=== PATIENT | male | born 1970 | race Caucasian/White ===

== ENCOUNTER 2017-12-13 08:12 | Outpatient (CLI) | payer MEDICAID ==
[2017-12-13 12:25] LABS: BASOPHILS # (AUTO) 0.1 10^3/uL (0.0-0.1); BASOPHILS % (AUTO) 0.8 %; EOSINOPHILS # (AUTO) 0.1 10^3/uL (0.0-0.7); EOSINOPHILS % (AUTO) 1.7 %; HGB - HEMOGLOBIN 15.9 g/dL (14.0-18.0); LYMPHOCYTES # (AUTO) 2.8 10^3/uL (1.5-3.5); LYMPHOCYTES % (AUTO) 31.7 %; MEAN CORPUSCULAR HEMOGLOBIN 30.5 pg (27.0-31.0); MEAN CORPUSCULAR HGB CONC 34.9 g/dL (32.0-36.0); MEAN CORPUSCULAR VOLUME 87.5 fL (80.0-94.0); MEAN PLATELET VOLUME 10.2 fL (7.4-11.4); MONOCYTES # (AUTO) 0.8 10^3/uL (0.0-1.0); MONOCYTES % (AUTO) 8.7 %; NEUTROPHILS % (AUTO) 57.1 %; PLT - PLATELET COUNT 164 10^3/uL (130-450); RED BLOOD COUNT 5.21 10^6/uL (4.70-6.10); RED CELL DISTRIBUTION WIDTH 13.9 % (12.0-15.0); WHITE BLOOD COUNT 8.7 x10^3/uL (4.8-10.8)
[2017-12-13 12:39] LABS: ALBUMIN 4.2 g/dL (3.2-5.5); ALBUMIN/GLOBULIN RATIO 1.6 (1.0-2.2); BILIRUBIN,TOTAL 0.4 mg/dL (0.2-1.0); CALCIUM 9.2 mg/dL (8.5-10.3); CREATININE 1.4 mg/dL (0.6-1.2); TOTAL PROTEIN 6.9 g/dL (6.7-8.2)
[2017-12-13 12:45] LABS: PSA FREE 0.151 ng/mL (0.16-2.81)
[2017-12-13 12:46] LABS: PSA TOTAL 0.826 ng/mL (0.000-2.000)
== END 2017-12-13 08:13 | disposition home or self-care (01) ==
LOC: LAB.N 08:12
PROVIDERS: ATTEND Family Medicine
DX: R35.8 Other polyuria (principal); R35.1 Nocturia
CPT/HCPCS: 36415; 80053; 84154; 85025

== ENCOUNTER 2018-01-10 11:26 | Outpatient (CLI) | payer MEDICAID ==
--- NOTE | 2018-01-10 14:22 | XRAY Report ---
Reason: HEEL PAIN,LEFT Procedure Date: 01/10/2018 Accession Number: [id number] / [id number] Procedure: XRN - Foot 3 View LT CPT Code: FULL RESULT: EXAM: LEFT FOOT RADIOGRAPHY EXAM DATE: 01/10/2018 11:37 AM. CLINICAL HISTORY: Left foot pain. Heel pain. COMPARISON: None. TECHNIQUE: 3 views. FINDINGS: Bones: Minor plantar spurring of the calcaneus is seen. No fracture or bone lesion is seen otherwise. Joints: Minor degenerative changes are seen in the first MTP and tibiotalar joints. Alignment is preserved. Soft Tissues: Normal. No soft tissue swelling. IMPRESSION: Minor heel spurring and degenerative changes seen. RADIA
== END 2018-01-10 11:27 | disposition home or self-care (01) ==
LOC: DI.N 11:26
PROVIDERS: ATTEND Family Medicine
DX: M77.32 Calcaneal spur, left foot (principal); M19.072 Primary osteoarthritis, left ankle and foot

== ENCOUNTER 2020-05-03 13:39 | Emergency (ER) | payer BC, MEDICAID, OTHER ==
[2020-05-03 14:41] LABS: BASOPHILS % (AUTO) 0.2 %; EOSINOPHILS # (AUTO) 0.1 10^3/uL (0.0-0.7); EOSINOPHILS % (AUTO) 0.7 %; HGB - HEMOGLOBIN 16.2 g/dL (14.0-18.0); LYMPHOCYTES # (AUTO) 2.8 10^3/uL (1.5-3.5); LYMPHOCYTES % (AUTO) 30.2 %; MEAN CORPUSCULAR HEMOGLOBIN 29.2 pg (27.0-31.0); MEAN CORPUSCULAR HGB CONC 33.7 g/dL (32.0-36.0); MEAN CORPUSCULAR VOLUME 86.8 fL (80.0-94.0); MEAN PLATELET VOLUME 10.7 fL (7.4-11.4); MONOCYTES # (AUTO) 0.7 10^3/uL (0.0-1.0); MONOCYTES % (AUTO) 7.5 %; NEUTROPHILS # (AUTO) 5.7 10^3/uL (1.5-6.6); NEUTROPHILS % (AUTO) 61.3 %; PLT - PLATELET COUNT 169 10^3/uL (130-450); RED BLOOD COUNT 5.54 10^6/uL (4.70-6.10); RED CELL DISTRIBUTION WIDTH 12.9 % (12.0-15.0); WHITE BLOOD COUNT 9.2 x10^3/uL (4.8-10.8)
[2020-05-03 14:48] LABS: ALBUMIN 4.4 g/dL (3.2-5.5); ALBUMIN/GLOBULIN RATIO 1.4 (1.0-2.2); BILIRUBIN,TOTAL 0.7 mg/dL (0.2-1.0); CALCIUM 9.3 mg/dL (8.5-10.3); CREATININE 1.2 mg/dL (0.6-1.2); TOTAL PROTEIN 7.6 g/dL (6.7-8.2)
--- NOTE | 2020-05-03 15:14 | ED Physician Documentation ---
PD HPI ABD PAIN - Stated complaint Stated Complaint: ABD PX - Chief complaint Chief Complaint: Abd Pain - History obtained from History obtained from: Patient - History of Present Illness Timing - onset: How many days ago (4) Timing - duration: Days (4) Timing - details: Gradual onset Pain level max: 4 Pain level now: 2 Quality: Aching, Pain Location: LLQ Improved by: Laying still Worsened by: Moving, Palpation Associated symptoms: No: Fever, Nausea, Vomiting, Hematemesis, Diarrhea, Constipation, Melena, Hematochezia, Dysuria, Hematuria, Chest pain, Dizzy Recently seen: Clinic (sent from clinic for evaluation for possible diverticulitis) - Additional information Additional information: Patient states left lower quadrant abdominal pain for the past 4 days. Seem to start after he was shoveling snow. Review of Systems Ten Systems: 10 systems reviewed and negative Constitutional: denies: Fever, Chills Respiratory: denies: Cough GI: denies: Nausea, Vomiting, Diarrhea Skin: denies: Rash Musculoskeletal: denies: Neck pain, Back pain Neurologic: denies: Headache PD PAST MEDICAL HISTORY - Past Medical History Past Medical History: No - Past Surgical History Past Surgical History: No - Allergies Allergies/Adverse Reactions: Allergies Allergy/AdvReac Type Severity Reaction Status Date / Time No Known Drug Allergies Allergy Verified 05/03/20 13:53 - Living Situation Living Situation: reports: With family Living Arrangement: reports: At home - Social History Does the pt smoke?: No Does the pt have substance abuse?: No - Family History Family history: reports: Non contributory PD ED PE NORMAL - Vitals Vital signs reviewed: Yes - General General: Alert and oriented X 3, No acute distress, Well developed/nourished - HEENT HEENT: Moist mucous membranes - Neck Neck: Supple, no meningeal sign - Cardiac Cardiac: RRR, Strong equal pulses - Respiratory Respiratory: No respiratory distress, Clear bilaterally - Abdomen Abdomen: Soft, Non distended, Other (TTP LLQ no peritoneal signs) - Male Male : Other (normal exam) - Back Back: No CVA TTP, No spinal TTP - Derm Derm: Warm and dry - Extremities Extremities: No edema, Other (normal DP and PT pulses in the L foot. NVI. brisk cap refill.) - Neuro Neuro: Alert and oriented X 3 - Psych Psych: Normal mood, Normal affect Results - Vitals Vitals: Vital Signs - 24 hr 05/03/20 13:48 Temperature 36.9 C Heart Rate 82 Respiratory 14 Rate Blood Pressure 142/89 H O2 Saturation 99 Oxygen O2 Source Room air - Labs Labs: Laboratory Tests 05/03/20 05/03/20 05/03/20 14:27 14:27 16:04 WBC 9.2 RBC 5.54 Hgb 16.2 Hct 48.1 MCV 86.8 MCH 29.2 MCHC 33.7 RDW 12.9 Plt Count 169 MPV 10.7 Neut # (Auto) 5.7 Lymph # (Auto) 2.8 [place] # (Auto) 0.7 Eos # (Auto) 0.1 Baso # (Auto) 0.0 Absolute Nucleated RBC 0.00 Nucleated RBC % 0.0 Sodium 139 Potassium 4.6 Chloride 105 Carbon Dioxide 27 Anion Gap 7.0 BUN 14 Creatinine 1.2 Estimated GFR (MDRD) 64 L Glucose 104 H Calcium 9.3 Total Bilirubin 0.7 AST 16 ALT 19 Alkaline Phosphatase 39 L Total Protein 7.6 Albumin 4.4 Globulin 3.2 Albumin/Globulin Ratio 1.4 Lipase 25 Urine Color YELLOW Urine Clarity CLEAR Urine pH 5.5 Ur Specific [place] <=1.005 Urine Protein NEGATIVE Urine Glucose (UA) NEGATIVE Urine Ketones NEGATIVE Urine Occult Blood NEGATIVE Urine Nitrite NEGATIVE Urine Bilirubin NEGATIVE Urine Urobilinogen 0.2 (NORMAL) Ur Leukocyte Esterase NEGATIVE Ur Microscopic Review NOT INDICATED Urine Culture Comments NOT INDICATED PD MEDICAL DECISION MAKING - ED course Complexity details: reviewed results, re-evaluated patient, considered differential, d/w patient ED course: Discussed with radiology at 1607. Call placed to [facility] in [place] @ 1612 for consult/transfer for vascular surgery. Discussed with Dr. Tellez (vascular surgery at [facility] in [place] at 1630), recommends aspirin and transfer to the [facility] ER for evaluation. D/w Dr. Thorne in the ER at [facility] who graciously accepts in transfer. COBRA forms completed. This document was made in part using voice recognition software. While efforts are made to proofread this document, sound alike and grammatical errors may o ccur. ABDOMEN: Lung bases: Lung bases are clear. Heart size is normal. Solid organs: Liver is normal in size and enhancement. Spleen is prominent measuring 12.6 cm in length. Gallbladder is normal. Biliary system is non dilated. Pancreas enhances normally. No adrenal nodules. Kidneys demonstrate normal size and enhancement, without hydronephrosis. Peritoneum and bowel: Bowel loops demonstrate normal wall thickness and caliber. Normal appendix. No free fluid or air. Nodes and vessels: No retroperitoneal or mesenteric adenopathy by size criteria. Aorta and inferior vena cava are normal in size. 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 A small focal dissection is seen involving the left external iliac artery. Proximal to the dissection, there is intraluminal thrombus causing moderate focal narrowing ( 50%). There is stranding and a trace amount of fluid around the left external iliac artery. There is no active contrast extravasation. Miscellaneous: No ventral hernias. PELVIS: Genitourinary: Bladder wall thickness is normal. Miscellaneous: No inguinal adenopathy. Fat-containing inguinal hernias. Bones: No suspicious bony lesions. No vertebral body compression fractures. IMPRESSION: 1. 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 A small focal dissection is seen in the left external iliac artery. Proximal to the dissection, there is intraluminal thrombus causing 50% luminal stenosis. There is stranding and a trace amount of fluid around the left external iliac artery. There is no active contrast extravasation. 2. No findings to suggest acute diverticulitis. The result was discussed with Dr. Roper. Departure - Departure Disposition: 02 Transfer Acute Care Hosp Clinical Impression: Iliac artery aneurysm, Iliac artery dissection Condition: Stable
[2020-05-03] MEDS ORDERED: IOVERSOL 320 100 ML VIAL IVP ONE ×2 (15:26→18:20)
[2020-05-03 16:15] LABS: BILIRUBIN,URINE NEGATIVE (NEGATIVE); GLUCOSE, URINE (UA) NEGATIVE (NEGATIVE); KETONES,URINE (UA) NEGATIVE (NEGATIVE); LEUKOCYTE ESTERASE, URINE NEGATIVE (NEGATIVE); NITRITE,URINE NEGATIVE (NEGATIVE); OCCULT BLOOD,URINE NEGATIVE (NEGATIVE); PH,URINE 5.5 PH (5.0-7.5); PROTEIN,URINE NEGATIVE (NEGATIVE); UROBILINOGEN,URINE 0.2 (NORMAL) E.U./dL (NORMAL)
[2020-05-03 16:16] LABS: CLARITY,URINE CLEAR (CLEAR)
--- NOTE | 2020-05-03 16:23 | CT Report ---
PROCEDURE: Abdomen/Pelvis W INDICATIONS: LLQ abd pain, possible diverticulitis CONTRAST: IV CONTRAST: Optiray 320 ml: 100 PO CONTRAST: *NO PO CONTRAST TECHNIQUE: After the administration of intravenous contrast, 5 mm thick sections acquired from the diaphragms to the symphysis. 5 mm thick coronal and sagittal reformats were acquired. For radiation dose reducti on, the following was used: automated exposure control, adjustment of mA and/or kV according to davis ent size. COMPARISON: None. FINDINGS: Image quality: Excellent. ABDOMEN: Lung bases: Lung bases are clear. Heart size is normal. Solid organs: Liver is normal in size and enhancement. Spleen is prominent measuring 12.6 cm in [facility]. Gallbladder is normal. Biliary system is non dilated. Pancreas enhances normally. No adrenal nodules. Kidneys demonstrate normal size and enhancement, without hydronephrosis. Peritoneum and bowel: Bowel loops demonstrate normal wall thickness and caliber. Normal appendix. N o free fluid or air. Nodes and vessels: No retroperitoneal or mesenteric adenopathy by size criteria. Aorta and inferior vena cava are normal in size. There is aneurysmal dilation of the left external iliac artery measuri ng 2.1 cm. A small focal dissection is seen involving the left external iliac artery. Proximal to the dissection, there is intraluminal thrombus causing moderate focal narrowing (~50%). There is strandi ng and a trace amount of fluid around the left external iliac artery. There is no active contrast ext ravasation. Miscellaneous: No ventral hernias. PELVIS: Genitourinary: Bladder wall thickness is normal. Miscellaneous: No inguinal adenopathy. Fat-containing inguinal hernias. Bones: No suspicious bony lesions. No vertebral body compression fractures. IMPRESSION: 1. 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 A small focal dissection is seen in the left external iliac artery. Proximal to the dissection, there is intraluminal thrombus causin g 50% luminal stenosis. There is stranding and a trace amount of fluid around the left external iliac artery. There is no active contrast extravasation. 2. No findings to suggest acute diverticulitis. The result was discussed with Dr. Roper. Reviewed by: Danish Silva MD on 05/03/2020 4:21 PM PST Approved by: Danish Silva MD on 05/03/2020 4:21 PM PST Station ID: [id number]
[2020-05-03] MEDS ORDERED: ASPIRIN CHEW 81 MG TABLET PO STA (16:30)
[2020-05-03 17:54] VITALS: BP 155/81
[2020-05-03 19:24] LABS: C. PNEUMONIAE- RESP PCR PANEL NOT DETECTED
== END 2020-05-03 17:50 | disposition short-term general hospital (02) ==
LOC: ED 13:39
DX: I72.3 Aneurysm of iliac artery (principal); I77.72 Dissection of iliac artery; Z20.822 Contact with and (suspected) exposure to COVID-19
CPT/HCPCS: 0202U; 36415; 74177; 80053; 81003; 83690; 85025; 99285; A9270; Q9967; 81001; 87086

== ENCOUNTER 2020-05-03 17:51 | Outpatient (CLI) | payer OTHER | END 2020-05-03 17:52 | disposition short-term general hospital (02) | LOC: EMS 17:51 | PROVIDERS: ATTEND Emergency Medicine | DX: I72.3 Aneurysm of iliac artery (principal) | CPT/HCPCS: A0425; A0428 ==

== ENCOUNTER 2020-10-28 16:38 | Emergency (ER) | payer BC ==
--- NOTE | 2020-10-28 18:24 | ED Physician Documentation ---
History of Present Illness - Stated complaint Stated Complaint: LT ARM/CHEST NUMBNESS/TINGLE - Chief complaint Chief Complaint: General - History obtained from History obtained from: Patient - Additonal information Additional information: 50-year-old gentleman with history of peripheral vascular disease status post stenting of the left femoral artery presents with about a week and a half of intermittent and very mild numbness of the left arm, hand, and upper anterior lateral chest wall. There is no associated weakness. No headache. No left lower extremity numbness, but he has had some trouble with what sounds a radiculopathy in his right leg. Review of Systems Constitutional: denies: Fever, Chills Ears: denies: Loss of hearing, Ear pain Nose: denies: Rhinorrhea / runny nose, Congestion Throat: denies: Sore throat Cardiac: denies: Chest pain / pressure, Palpitations Respiratory: denies: Dyspnea, Cough PD PAST MEDICAL HISTORY - Past Surgical History Past Surgical History: No - Present Medications Home Medications: Ambulatory Orders Medication Instructions Recorded Confirmed No Known Home Medications 10/28/20 10/28/20 - Allergies Allergies/Adverse Reactions: Allergies Allergy/AdvReac Type Severity Reaction Status Date / Time No Known Drug Allergies Allergy Verified 10/28/20 16:55 - Social History Does the pt smoke?: No Smoking Status: Never smoker Does the pt have substance abuse?: No PD ED PE NORMAL - Vitals Vital signs reviewed: Yes - General General: Alert and oriented X 3, No acute distress - HEENT HEENT: PERRL, EOMI - Neck Neck: Supple, no meningeal sign, No bony TTP - Cardiac Cardiac: RRR, No murmur - Respiratory Respiratory: No respiratory distress, Clear bilaterally - Abdomen Abdomen: Non tender - Extremities Extremities: Other (NIH stroke scale of 0, there is no discernible area of diminished sensation on the left compared with the right. Equal radial pulses bilaterally.) - Neuro Neuro: Alert and oriented X 3, Normal speech Results - Vitals Vitals: Vital Signs - 24 hr 10/28/20 10/28/20 10/28/20 16:52 18:15 19:05 Temperature 37.0 C 36.7 C 36.6 C Heart Rate 95 75 73 Respiratory 14 14 18 Rate Blood Pressure 148/87 H 139/86 H 132/89 H O2 Saturation 97 98 95 Oxygen O2 Source Room air - EKG (time done) 1646 Rate: Rate (enter#) (84) Rhythm: NSR [place]: Normal Intervals: Normal DC QRS: Normal Ischemia: Normal ST segments PD MEDICAL DECISION MAKING - ED course ED course: 50-year-old gentleman with left arm numbness associated with neck pain, consistent by history with cervical radiculopathy. Exam is normal with no evidence of stroke or deficit. CT of neck corroborates potential for degenerative changes in the neck and potential mild radicular symptoms. Departure - Departure Disposition: 01 Home, Self Care Clinical Impression: Cervical radiculopathy at C5 Condition: Good Record reviewed to determine appropriate education?: Yes Instructions: ED Cervical Radiculopathy Comments: Follow-up with your doctor and consider specialty referral if symptoms are persistent or debilitating. Return for new or worsening symptoms. Discharge Date/Time: 10/28/20 19:14
--- NOTE | 2020-10-28 18:47 | CT Report ---
PROCEDURE: CERVICAL SPINE WO INDICATIONS: neck pain, l arm numb TECHNIQUE: Noncontrast 3 mm thick sections acquired from the skull base to the T4 level. Sagittal and coronal r eformats were then constructed. For radiation dose reduction, the following was used: automated exp osure control, adjustment of mA and/or kV according to patient size. COMPARISON: None. FINDINGS: Straightening of the usual cervical lordosis, likely positional. No listhesis. Vertebral body heights maintained. There is no fracture. Minimal disc height loss and degenerative endplate change at C4-C5 and C5-C6 with some mild uncovertebral spurring. No spinal canal or neural foraminal stenosis at any level. Prevertebral and paraspinous soft tissues are grossly unremarkable in the absence of IV contr ast. IMPRESSION: Mild mid cervical spine degenerative changes. Reviewed by: Naveed Castrejon MD on 10/28/2020 6:46 PM PDT Approved by: Naveed Castrejon MD on 10/28/2020 6:46 PM PDT Station ID: [id number]
[2020-10-28 19:06] VITALS: BP 132/89
== END 2020-10-28 19:14 | disposition home or self-care (01) ==
LOC: ED 16:38
DX: M54.12 Radiculopathy, cervical region (principal); Z86.79 Personal history of other diseases of the circulatory system; Z98.62 Peripheral vascular angioplasty status
CPT/HCPCS: 93005; 99282; 99284

== ENCOUNTER 2020-11-16 12:44 | Outpatient (CLI) | payer BC ==
--- NOTE | 2020-11-16 16:20 | MRI Report ---
PROCEDURE: Lumbar Spine W/O INDICATIONS: LUMBAR RADICULOPATHY TECHNIQUE: Noncontrast sagittal T1 spin echo and T2 fast echo, sagittal STIR, axial T1 and T2 fast spin echo thr ough the lumbar spine. In cases with scoliosis, additional coronal T2 fast spin echo may be performe d. COMPARISON: CT of abdomen and pelvis dated 05/03/2020. FINDINGS: Image quality: Excellent. Alignment and Curvature: There is straightening of normal lumbar lordosis. Bone Marrow: Marrow is of normal overall signal. No acute vertebral body compression fractures. Spinal Cord: Conus medullaris terminates at the L1 level. Visualized cord demonstrates normal signa l and size. Paraspinous Soft Tissues: No paravertebral masses. T12-L1: Normal in appearance. L1-L2: Normal in appearance. L2-L3: Slight loss of disc signal is seen. Mild diffuse disc bulge and bilateral facet arthrosis i s noted. No significant central canal stenosis or neural foraminal narrowing. L3-L4: There is loss of disc signal. Broad-based disc bulge and bilateral facet arthrosis is seen w ith hypertrophy of ligamentum flavum. Mild central canal stenosis and bilateral neural foraminal narr owing is seen. L4-L5: There is loss of disc height and disc signal. Broad-based disc bulge and bilateral facet art hrosis is seen with hypertrophy of ligamentum flavum. There is moderate central canal stenosis and ri ght worse than left bilateral neural foraminal narrowing. Bulging disc is seen impinging on exiting r ight L4 nerve root. L5-S1: Normal in appearance. IMPRESSION: 1. Degenerative disc disease at L3-4 and L4-5 levels causing mild to moderate central canal stenosis and bilateral neural foraminal narrowing more prominent at L4-5 level as described above. 2. No marrow edema. No compression fracture or spondylolisthesis. Reviewed by: Leopoldo West MD on 11/16/2020 4:19 PM PDT Approved by: Leopoldo West MD on 11/16/2020 4:19 PM PDT Station ID: [id number]
== END 2020-11-16 12:45 | disposition home or self-care (01) ==
LOC: DI 12:44
PROVIDERS: ATTEND Nurse Practitioner
DX: M51.16 Intervertebral disc disorders with radiculopathy, lumbar region (principal); M48.061 Spinal stenosis, lumbar region without neurogenic claudication; M47.26 Other spondylosis with radiculopathy, lumbar region

== ENCOUNTER 2020-12-08 08:00 | Outpatient (CLI) | payer BC ==
[2020-12-08 17:50] LABS: BASOPHILS % (AUTO) 0.6 %; EOSINOPHILS # (AUTO) 0.2 10^3/uL (0.0-0.7); EOSINOPHILS % (AUTO) 2.1 %; HCT - HEMATOCRIT 49.7 % (42.0-52.0); HGB - HEMOGLOBIN 16.6 g/dL (14.0-18.0); LYMPHOCYTES # (AUTO) 2.9 10^3/uL (1.5-3.5); LYMPHOCYTES % (AUTO) 40.2 %; MEAN CORPUSCULAR HEMOGLOBIN 30.5 pg (27.0-31.0); MEAN CORPUSCULAR HGB CONC 33.4 g/dL (32.0-36.0); MEAN CORPUSCULAR VOLUME 91.2 fL (80.0-94.0); MEAN PLATELET VOLUME 11.7 fL (7.4-11.4); MONOCYTES # (AUTO) 0.7 10^3/uL (0.0-1.0); NEUTROPHILS # (AUTO) 3.5 10^3/uL (1.5-6.6); NEUTROPHILS % (AUTO) 47.8 %; PLT - PLATELET COUNT 201 10^3/uL (130-450); RED BLOOD COUNT 5.45 10^6/uL (4.70-6.10); RED CELL DISTRIBUTION WIDTH 13.2 % (12.0-15.0); WHITE BLOOD COUNT 7.3 x10^3/uL (4.8-10.8)
[2020-12-08 17:52] LABS: BILIRUBIN,URINE NEGATIVE (NEGATIVE); GLUCOSE, URINE (UA) NEGATIVE (NEGATIVE); KETONES,URINE (UA) NEGATIVE (NEGATIVE); LEUKOCYTE ESTERASE, URINE NEGATIVE (NEGATIVE); NITRITE,URINE NEGATIVE (NEGATIVE); OCCULT BLOOD,URINE NEGATIVE (NEGATIVE); PH,URINE 5.5 PH (5.0-7.5); PROTEIN,URINE NEGATIVE (NEGATIVE); UROBILINOGEN,URINE 0.2 (NORMAL) E.U./dL (NORMAL)
[2020-12-08 18:01] LABS: AMORPHOUS SEDIMENT,UR Marked /LPF; BACTERIA,URINE None Seen /HPF (None Seen); CLARITY,URINE CLEAR (CLEAR); RBC,URINE 0-5 /HPF (0-5); SQUAMOUS EPITHELIAL CELL,UR RARE Squamous (<= Few); WBC,URINE 0-3 /HPF (0-3)
[2020-12-08 18:16] LABS: ALBUMIN 4.3 g/dL (3.2-5.5); ALBUMIN/GLOBULIN RATIO 1.3 (1.0-2.2); ALKALINE PHOSPHATASE 34 IU/L (42-121); ALT ALANINE AMINOTRANSFERASE 24 IU/L (10-60); AST ASPARTATE AMINOTRANSFERASE 17 IU/L (10-42); BILIRUBIN,TOTAL 0.6 mg/dL (0.2-1.0); BUN - BLOOD UREA NITROGEN 17 mg/dL (6-20); CALCIUM 9.2 mg/dL (8.5-10.3); CARBON DIOXIDE - CO2 28 mmol/L (21-32); CHLORIDE 106 mmol/L (101-111); CHOL/HDL RATIO 4.9 (<5.0); CHOLESTEROL 209 mg/dL; CREATININE 1.3 mg/dL (0.6-1.2); GFR - MDRD 58 (>89); GLUCOSE 101 mg/dL (70-100); HDL CHOLESTEROL 43 mg/dL; LDL CHOLESTEROL,CALCULATED 139 mg/dL; LDL/HDL RATIO 3.2 (<3.6); POTASSIUM 4.6 mmol/L (3.5-5.0); SODIUM 141 mmol/L (135-145); TOTAL PROTEIN 7.5 g/dL (6.7-8.2); TRIGLYCERIDES 137 mg/dL; VLDL CHOLESTEROL 27 mg/dL
== END 2020-12-08 23:59 | disposition home or self-care (01) ==
LOC: LAB.WCP 08:00
PROVIDERS: ATTEND Nurse Practitioner
DX: Z00.00 Encounter for general adult medical examination without abnormal findings (principal); Z12.5 Encounter for screening for malignant neoplasm of prostate
CPT/HCPCS: 36415; 80053; 80061; 81001; 83721; 84153; 85025; 87086

== ENCOUNTER 2021-07-18 15:18 | Outpatient (CLI) | payer BC | END 2021-07-18 15:19 | disposition home or self-care (01) | LOC: LAB.N 15:18 | PROVIDERS: ATTEND Nurse Practitioner | DX: R53.83 Other fatigue (principal) | CPT/HCPCS: 36415; 84403 ==